=== PATIENT | female | born 1970 | race Caucasian/White ===

== ENCOUNTER 2020-11-10 19:21 | Inpatient (IN) | payer BC, MEDICAID ==
[~2020-11-10] VITALS: Ht 165.1 cm; Wt 60.8 kg
--- NOTE | 2020-11-10 19:43 | NUR ---
PT MOLLY FROM HOME FOR C/O ALTEREN MENTAL SENSATION . WAS DIAGNOSED W/ COVID ON 11/05/20 AT [facility]. VERY CONFUSED AND AGITATED.
--- NOTE | 2020-11-10 19:53 | NUR ---
EMT @ BEDSIDE FOR EKG.
--- NOTE | 2020-11-10 19:53 | NUR ---
JUDICIAL LAW CLERK @ BEDSIDE
--- NOTE | 2020-11-10 20:07 | NUR ---
URINE COLLECTED AND SENT TO LAB.
[2020-11-10 20:17] LABS: BASOPHILS % (AUTO) 0.5 % (0.0-2.0); HEMATOCRIT 41 % (33-45); HEMOGLOBIN 13.9 g/dL (11.5-14.8); LYMPHOCYTES # (AUTO) 1.1 K/uL (0.8-4.8); LYMPHOCYTES % (AUTO) 13.2 % (20.0-44.0); MEAN CORPUSCULAR HGB CONC 34 g/dl (31.0-36.0); MEAN CORPUSCULAR VOLUME 87 fL (82-100); MONOCYTES # (AUTO) 0.5 K/uL (0.1-1.30); MONOCYTES % (AUTO) 5.8 % (2.0-12.0); NEUTROPHILS # (AUTO) 6.8 K/uL (1.8-8.9); NEUTROPHILS % (AUTO) 80.5 % (43.0-81.0); PLATELET COUNT (AUTO) 537 K/uL (150-450); WHITE BLOOD COUNT (AUTO) 8.4 K/uL (4.3-11.0)
[2020-11-10 20:25] LABS: BILIRUBIN,URINE NEGATIVE (NEGATIVE); COLOR,URINE YELLOW (YELLOW); LEUKOCYTE ESTERASE ,URINE NEGATIVE (NEGATIVE); NITRITE, URINE NEGATIVE (NEGATIVE); PROTEIN,URINE NEGATIVE (NEGATIVE); UGLUCOSE NEGATIVE (NEGATIVE); UROBILINOGEN,URINE 0.2 EU/dL (0.2)
[2020-11-10 20:31] LABS: D-DIMER 0.66 mg/L(FEU (0.17-0.50)
[2020-11-10 20:41] LABS: BACTERIA,URINE None seen /HPF (None Seen); CALCIUM OXALATE CRYSTALS,UR Few /HPF (None Seen); RBC,URINE 0-2 /HPF (0-2)
[2020-11-10 20:46] LABS: LYMPHOCYTES % (MANUAL) 20 % (16-48); MONOCYTES % (MANUAL) 9 % (0-11.0); NEUTROPHILS % (MANUAL) 71 (42-76)
[2020-11-10 21:00] LABS: ALANINE AMINOTRANSFERASE 33 U/L (12-78); ALBUMIN 3.2 g/dL (3.4-5.0); ALKALINE PHOSPHATASE 60 U/L (46-116); ASPARTATE AMINOTRANSFERASE 20 U/L (15-37); BILIRUBIN,TOTAL 0.4 mg/dL (0.2-1.0); CALCIUM, SERUM 8.9 mg/dL (8.5-10.1); CARBON DIOXIDE 26 mmol/L (21-32); CHLORIDE 107 mmol/L (98-107); CREATININE 0.8 mg/dL (0.6-1.3); GLUCOSE 122 mg/dL (74-106); POTASSIUM 4.1 mmol/L (3.5-5.1); SODIUM SERUM 144 mmol/L (136-145); UREA NITROGEN, BLOOD 19 mg/dL (7-18)
--- NOTE | 2020-11-10 21:02 | NUR ---
RT NOTE Pt is non compliant and refused ABG. Pt shows no signs of resp distress or sob. RN and MD aware. Will continue to monitor.
[2020-11-10 21:11] LABS: C-REACTIVE PROTEIN 0.5 mg/dL (0.0-0.9); CREATINE KINASE, TOTAL 78 U/L (26-192); FERRITIN 322 ng/mL (8-388)
--- NOTE | 2020-11-10 22:15 | NUR ---
CODY HANSEN TALKING TO DR. CANALES REGARDING PT ADMISSION.
--- NOTE | 2020-11-10 22:16 | NUR ---
TELE 108
[2020-11-10 22:18] LABS: THYROID STIMULATING HORMONE 0.879 uIU/mL (0.358-3.74)
[2020-11-10] MEDS ORDERED: DEXAMETHASONE SOD PHOSPHATE 10 MG/ML VIAL IV ONE (22:30)
--- NOTE | 2020-11-10 22:37 | NUR ---
REPORT GIVEN TO AVERY TOLBERT
--- NOTE | 2020-11-10 22:38 | NUR ---
RN NOTE REPORT RECEIVED FROM AVERY BROWER.
--- NOTE | 2020-11-10 22:45 | NUR ---
RN NOTE PT BROUGHT TO [place] VIA GURNEY ACCOMPANIED BY AVERY BROWER. PT IS ON ROOM AIR SHOWING NO S/S OF RESP DISTRESS/SOB. PT IS A/OX1-2. PT IS VERBAL, BUT DOES NOT ANSWER ALL QUESTIONS. PT IS ABLE TO MOVE ALL EXTREMITIES WITHOUT ANY DIFFICULTIES. HAS EPISODES OF STARING AT STAFF AT TIMES. CURRENTLY ON TELE MONITOR SHOWING NSR. SKIN INTACT. RIGHT AC GAUGE 18 NOTED. IV LINE FLUSHED, PATENT, AND INTACT WITH NO S/S OF INFILTRATION. ALL SAFETY MEASURES IMPLEMENTED. CALL LIGHT WITHIN REACH. BED ALARM ON. BED LOCKED AND IN LOWEST POSITION. WILL CONTINUE TO MONITOR THROUGHOUT THE SHIFT.
--- NOTE | 2020-11-10 22:49 | NUR ---
PT TRANSFERRED TO 108 VIA ACLS.
[2020-11-10] MEDS ORDERED: IV NS 0.9% 1,000 ML IV ONE (23:00)
[2020-11-10] MEDS ORDERED: MAGNESIUM HYDROXIDE 30 ML UDC PO PRN (23:00)
[2020-11-10] MEDS ORDERED: Z GUARD REMEDY 2 OZ OINT TP PRN (23:00)
[2020-11-10] MEDS ORDERED: ACETAMINOPHEN 325 MG TABLET PO PRN (23:00)
[2020-11-10] MEDS ORDERED: ONDANSETRON HCL/PF 4 MG/2 ML VIAL IVP PRN (23:00)
[2020-11-10] MEDS ORDERED: ZOLPIDEM TARTRATE 5 MG TABLET PO PRN (23:00)
[2020-11-10] MEDS ORDERED: MAG HYDROX/AL HYDROX/SIMETH 30 ML UDC PO PRN (23:00)
[2020-11-11] VITALS: BP 135/89
--- NOTE | 2020-11-11 02:00 | NUR ---
RESUMED CARE FROM AVERY TOLBERT. PATIENT IN BED, ANXIOUS, SCREAMING AND YELLING, ON 2LPM VIA AL. PATIENT CALLING FREQUENTLY FOR ANYTHING, SPEAKS MOSTLY ERITREAN.
--- NOTE | 2020-11-11 02:23 | NUR ---
PATIENT AGITATED, YELLING, SCREAMING IN UKRAINIAN, SON CAME IN, COMMUNICATING WITH PATIENT THROUGH OUTSIDE OF WINDOW, TRANSLATING, PATIENT NOT IN PAIN, PATIENT GOING BACK AND FORTH ABOUT NOT BEING ABLE TO BREATHE, NEEDS OXYGEN TO NOT NEEDING OXYGEN. PATIENT ALREADY ON 2LPM VIA NC. NOTIFIED DR. CANALES, NO ORDER OF ANTI - ANXIETY, NO PAIN MEDICATION, CONTINUE SUPPORTIVE CARE.
[2020-11-11 04:00] VITALS: BP 133/87
--- NOTE | 2020-11-11 06:22 | NUR ---
ALERT/ORIENTED X2, ROOM AIR, AFEBRILE, POOR INSIGHTS ON SITUATION, CAN BECOME AGITATED, NO COUGHING, DIMINISHED LUNG SOUNDS, COVID (+) ON 11/05/20 AT ANOTHER HOS[facility]ITAL, SPO2 ON RA 100%, COMPLAINING OF DIFFICULTY BREATHING, PUT ON 2LPM VIA NC FOR COMFORT, NPO DUE TO ACUTE ENCEPHALOPATHY, WITH ORDER FOR COVID TEST, REFUSED COVID TEST, ATTEMPTED X3, PULLED OUT IV LINE. AGREEABLE FOR BLOOD DRAW AND PLACEMENT OF IV, REFUSING COVID TEST. PER CT HEAD, NO EVIDENCE FO ACUTE INFARCTION, NO HEMORRHAGE. PER CXR, PNA OR PNEUMONITIS, COULD INCLUDE VIRAL ETIOLOGY. FALL PRECAUTION.
[2020-11-11 06:23] LABS: BASOPHILS % (AUTO) 0.1 % (0.0-2.0); EOSINOPHILS % (AUTO) 0.1 % (0.0-6.0); HEMATOCRIT 40 % (33-45); HEMOGLOBIN 13.8 g/dL (11.5-14.8); LYMPHOCYTES # (AUTO) 2.1 K/uL (0.8-4.8); LYMPHOCYTES % (AUTO) 25.1 % (20.0-44.0); MEAN CORPUSCULAR HGB CONC 34 g/dl (31.0-36.0); MEAN CORPUSCULAR VOLUME 88 fL (82-100); MONOCYTES # (AUTO) 0.7 K/uL (0.1-1.30); NEUTROPHILS # (AUTO) 5.5 K/uL (1.8-8.9); NEUTROPHILS % (AUTO) 66.7 % (43.0-81.0); PLATELET COUNT (AUTO) 529 K/uL (150-450); RED BLOOD CELL COUNT(AUTO) 4.57 MIL/uL (4.0-5.2); WHITE BLOOD COUNT (AUTO) 8.2 K/uL (4.3-11.0)
[2020-11-11 06:56] LABS: CALCIUM, SERUM 8.7 mg/dL (8.5-10.1); CREATININE 0.8 mg/dL (0.6-1.3); MAGNESIUM 2.4 mg/dL (1.8-2.4); PHOSPHORUS 3.6 mg/dL (2.5-4.9); POTASSIUM 3.6 mmol/L (3.5-5.1)
--- NOTE | 2020-11-11 07:15 | NUR ---
FOIL STAMP OPERATOR OPENING NOTE RECEIVED PATIENT ON BED ALERT AND ORIENTED X 2, MOSTLY SYRIAC-SPEAKING BUT UNDERSTANDS SOME CUBAN. NO S/SX OF ACUTE DISTRESS AT THIS TIME. NO SOB NOTED, WITH REGULAR, EVEN AND UNLABORED BREATHING WITH OXYGEN AT 2LPM VIA NASAL CANULA WITH OXYGEN SATURATION OF 100%. NOTED IV SITE ON LAC#22; PATENT, INTACT AND FLUSHING WELL; NO S/S OF INFECTION OR INFILTRATION. PATIENT IS ANXIOUS AND WITH 1:1 SITTER AT BEDSIDE AT ALL TIMES. SAFETY MEASURES HAVE BEEN PROVIDED AND IMPLEMENTED. PATIENT BED ALARM IS ON. HEAD OF BED ELEVATED. BED IS LOCKED AND IN LOWEST POSITION AND SIDE RAILS UP. CALL LIGHT WITHIN REACH OF THE PATIENT. APPLICABLE ISOLATION PRECAUTIONS IN PLACE. WILL CONTINUE TO MONITOR PATIENT.
[2020-11-11 08:00] VITALS: BP 132/88
[2020-11-11] MEDS ORDERED: IPRA4AER INH (08:53)
--- NOTE | 2020-11-11 11:00 | NUR ---
MS RN NOTE PATIENT SEEN BY DR. RODRIGUEZ WITH ORDERS MADE AND CARRIED OUT. WILL CONTINUE TO MONITOR PATIENT.
--- NOTE | 2020-11-11 11:36 | NUR ---
PHD INTERN NOTE PATIENT NOW ON REGULAR DIET BUT REFUSED TO EAT AT THIS TIME BECAUSE SHE THINKS THAT SHE WILL BE POISONED. PATIENT FOR PSYCHIATRIC REFERRAL PER MD ORDER. PATIENT VERBALIZED FEAR THROUGH CONFERENCE CALL WITH SON CHUCKIE.WILL CONTINUE TO MONITOR PATIENT.
[2020-11-11] MEDS: ENOXAPARIN SODIUM 40 MG/0.4 ML DISP.SYRIN SQ SCH (12:30)
[2020-11-11 14:51] LABS: ABG BASE EXCESS 1.9 mmol/L; ABG OXYGEN SATURATION 95.5 % (92.0-98.5); ABG PCO2 39.2 mmHg (35.0-45.0); ABG PH 7.441 (7.350-7.450); ABG PO2 78.1 mmHg (75.0-100.0); AaDO2 24.7 mmHg; COHb 0.4 % (0.5-1.5); MetHb 0.3 % (0.0-1.5); O2Hb 94.8 % (94.0-97.0); SITE, ABG Right Radial; VENT MODE, BG ROOM AIR
[2020-11-11 16:00] VITALS: BP 131/89
--- NOTE | 2020-11-11 18:20 | NUR ---
CANVAS SHRINKER NOTE PATIENT REFUSED TO EAT OR DRINK. NO OUTPUT. ON IVF HYDRATION OF NS AT 75ML/HR. LAST BS CHECK DONE AT 1700 WAS 123MG/DL. DR. RODRIGUEZ AWARE, WITH NO NEW ORDER AT THIS TIME. WILL CONTINUE TO MONITOR PATIENT.
--- NOTE | 2020-11-11 18:55 | NUR ---
FORK OPERATOR CLOSING NOTE PATIENT ON BED ASLEEP ALERT AND ORIENTED X 2, MOSTLY KOSOVAN-SPEAKING BUT UNDERSTANDS SOME THAI. NO S/SX OF ACUTE DISTRESS AT THIS TIME. NO SOB NOTED, WITH REGULAR, EVEN AND UNLABORED BREATHING ON ROOM AIR WITH OXYGEN SATURATION OF 97%. NOTED IV SITE ON LAC#22 WITH IVF OF NS RUNNIGN AT 75ML/HR; PATENT, INTACT AND FLUSHING WELL; NO S/S OF INFECTION OR INFILTRATION. PATIENT IS RESTING RIGHT NOW BUT WITH EPISODES OF ANXIETY PER EMU FARMER WITH 1:1 SITTER AT BEDSIDE AT ALL TIMES. SAFETY MEASURES HAVE BEEN PROVIDED AND IMPLEMENTED. PATIENT BED ALARM IS ON. HEAD OF BED ELEVATED. BED IS LOCKED AND IN LOWEST POSITION AND SIDE RAILS UP. CALL LIGHT WITHIN REACH OF THE PATIENT. APPLICABLE ISOLATION PRECAUTIONS IN PLACE. WILL ENDORSE TO NEXT SHIFT FOR CONTINUITY OF CARE.
[2020-11-11 20:00] VITALS: BP 128/78
[2020-11-11] MEDS ORDERED: ZOLPIDEM TARTRATE 5 MG TABLET PO PRN (21:00)
[2020-11-12 04:00] VITALS: BP 129/78
--- NOTE | 2020-11-12 05:05 | NUR ---
TELE-1/BUSINESS SYSTEMS TECHNICIAN PT AMBULATED TO THE RESTROOM. VOIDED LARGE AMOUNT OF CLEAR YELLOW URINE. LINENS CHANGED PT TOLERATED WELL. WILL CONTINUE TO MONITOR.
[2020-11-12 06:59] LABS: CALCIUM, SERUM 8.2 mg/dL (8.5-10.1); CREATININE 0.7 mg/dL (0.6-1.3); POTASSIUM 3.7 mmol/L (3.5-5.1)
--- NOTE | 2020-11-12 07:10 | NUR ---
RN OPENING NOTE RECEIVED PT ON BED, A/O X2. GERMAN SPEAKING BUT UNDERSTANDS SOME CZECH. STABLE ON ROOM AIR. NO SOB OR ANY S/SX OF ACUTE RESPIRATORY DISTRESS AT THIS TIME. IV ACCESS ON LAC #22 INTACT, PATENT AND FLUSHED. NO PAIN REPORTED AT THIS TIME. SKIN IS INTACT. BRP. SAFETY MEASURES IMPLEMENTED. CALL LIGHT WITHIN REACH. BED ALARM ON. BED LOCKED AND IN LOWEST POSITION WITH SIDE RAILS UP X2. WILL CONTINUE TO MONITOR.
[2020-11-12 08:00] VITALS: BP 102/64
[2020-11-12] MEDS: ENOXAPARIN SODIUM 40 MG/0.4 ML DISP.SYRIN SQ SCH ×2 (08:38→16:13)
[2020-11-12 12:00] VITALS: BP 107/65
[2020-11-12 16:00] VITALS: BP 94/61
--- NOTE | 2020-11-12 16:14 | NUR ---
RN NOTES PSYCH CONSULT DONE FOR PERIODS OF CONFUSION.. PT REFUSED LOVENOX @0900 AND TOLD MD OKAY TO GIVE RIGHT NOW. LOVENOX ADMINISTERED ORDERED. WILL CONTINUE TO MONITOR FOR ANY CHANGES.
--- NOTE | 2020-11-12 19:07 | NUR ---
RN CLOSING NOTES NO SIGNIFICANT CHANGES THROUGHOUT THE SHIFT. NO SOB OR ANY DISTRESS NOTED. NO PAIN REPORTED AT THIS TIME. KEPT CLEAN AND COMFORTABLE. NEEDS ATTENDED. WILL ENDORSE TO NIGHT RN FOR HIMA.
[2020-11-12 20:00] VITALS: BP 115/70
[2020-11-13] VITALS: BP 90/61
[2020-11-13 04:00] VITALS: BP 91/62
--- NOTE | 2020-11-13 07:30 | NUR ---
RN Notes Received pt in bed, A/O x2. Albanian/Cymro speaking, but understands some Zambian. Stable on RA, no SOB or any s/sx of acute respiratory distress. IV access on LAC Gauge 22, intact, patent, and flushed. No pain reported at this time. Skin is intact. BRP. Safety measures implemented. Call light within reach, bed alarm on, bed in lowest, locked position with side rails up x2.
[2020-11-13] MEDS: ENOXAPARIN SODIUM 40 MG/0.4 ML DISP.SYRIN SQ SCH (08:14)
[2020-11-13 09:35] VITALS: BP 95/62
[2020-11-13 12:00] VITALS: BP 99/69
--- NOTE | 2020-11-13 13:20 | NUR ---
RN Notes Dr. Gastelum at bedside said okay for possible discharge.
--- NOTE | 2020-11-13 14:55 | NUR ---
school teacher Notes Discharge instructions given. Pt understood. Hep lock removed on the left AC. No bleeding noted, dry dressing applied. Instructed to f/u with primary care doctor. Belongings signed. Home medications explained how to take and possible side effects. Taken to lobby by wheelchair with stable condition. Pt is waiting for her in the lobby.
== END 2020-11-13 14:56 | disposition home or self-care (01) | DRG 137 ==
LOC: ER 19:24 → TELE1 22:30
PROVIDERS: ADMIT Family Medicine
DX: U07.1 COVID-19 (principal); G93.41 Metabolic encephalopathy; E44.1 Mild protein-calorie malnutrition; F05 Delirium due to known physiological condition; E88.09 Other disorders of plasma-protein metabolism, not elsewhere classified; M54.30 Sciatica, unspecified side; R73.9 Hyperglycemia, unspecified; D47.3 Essential (hemorrhagic) thrombocythemia; Z91.19 Patient's noncompliance with other medical treatment and regimen; Z68.22 Body mass index [BMI] 22.0-22.9, adult
CPT/HCPCS: 36415; 36600; 70450-TC; 71045-TC; 80048-TC; 80053-TC; 80061-TC; 81001; 82140-TC; 82550-TC; 82728-TC; 82803-TC; 83605-TC; 83615-TC; 83735-TC; 83880; 84100-TC; 84439-TC; 84443-TC; 84484-TC; 84702-TC; 85025-TC; 85378-TC; 85730-TC; 86140-TC; 87040-TC; 87081-TC; 92526; 92611-TC; G0378; J1100; J1650; J7030; U0003